=== PATIENT | male | born 1965 | race Caucasian/White ===

== ENCOUNTER 2018-03-14 17:02 | Emergency (ER) | payer MEDICAID ==
[2018-03-14 17:08] VITALS: BP 144/104
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
== END 2018-03-14 18:20 | disposition home or self-care (01) ==
LOC: EDUNIT#
PROC: 0HQ0XZZ Repair Scalp Skin, External Approach (ICD-10-PCS; principal; 2018-03-14)
DX: S01.01XA Laceration without foreign body of scalp, initial encounter (principal); F17.200 Nicotine dependence, unspecified, uncomplicated; Y00.XXXA Assault by blunt object, initial encounter